=== PATIENT | male | born 1995 | race Caucasian/White ===

== ENCOUNTER 2019-05-26 16:08 | Emergency (ER) | payer OTHER ==
[~2019-05-26] VITALS: Ht 167.6 cm; Wt 75.7 kg
[~2019-05-26 16:08] MED LIST: CEPH-443 PO; HYDR-3498 PO; IBUP-1561 PO
[2019-05-26 16:11] VITALS: Ht 167.6 cm; Wt 75.7 kg
[2019-05-26 19:02] VITALS: BP 131/83; PULSE 65; RESP 18
== END 2019-05-26 19:03 | disposition home or self-care (01) ==
LOC: FTE 16:08
DX: S06.0X0A Concussion without loss of consciousness, initial encounter (principal); F17.210 Nicotine dependence, cigarettes, uncomplicated; Y08.89XA Assault by other specified means, initial encounter
CPT/HCPCS: 70450; Z7502; 99284